=== PATIENT | female | born 1990 | race Caucasian/White ===

== ENCOUNTER 2019-10-10 02:59 | Emergency (ER) | payer OTHER, SELFPAY ==
--- NOTE | 2019-10-10 02:48 | ECG_ITS ---
Measurements Intervals [place] Rate: 59 P: 25 SC: 164 QRS: -6 QRSD: 93 T: 8 QT: 394 QTc: 393 Interpretive Statements SINUS BRADYCARDIA WITH SINUS ARRHYTHMIA DELAYED PRECORDIAL R/S TRANSITION LOW QRS VOLTAGE IN PRECORDIAL LEADS BORDERLINE T WAVE ABNORMALITY- ANTERIOR LEADS BASELINE ARTIFACT- I, II, III, AVR, AVL, AVF, V2 BORDERLINE ECG Electronically Signed On 10-10-2019 15:36:19 CDT by Oz Ray D.O.
[2019-10-10 02:58] VITALS: BP 120/70; PULSE 61; RESP 19; TEMP 36.6; O2SAT 100
--- NOTE | 2019-10-10 03:24 | ED.SYNCOPE ---
HPI - Syncope General Chief Complaint: Syncope Stated Complaint: weakness/ syncope Time Seen by Provider: 10/10/19 03:19 History of Present Illness HPI narrative: Patient had a syncopal episode tonight. She usually faints once or twice a year. No cause has been found. She had no injury. 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 She has asthma, irritable bowel syndrome, migraine headaches. She has had a surgery as a child. She does not smoke cigarette, she drinks occasional alcohol, does not use marijuana. Is not been sick recently. MD complaint: loss of consciousness, felt faint and collapsed Onset (ago): hour(s) Prodromal symptoms: lightheaded Related Data Allergies Allergy/AdvReac Type Severity Reaction Status Date / Time acetaminophen Allergy Mild Hives / Verified 07/02/16 16:46 [place] butalbital Allergy Mild Hives / Verified 07/02/16 16:46 [place] caffeine Allergy Mild Hives / Verified 07/02/16 16:46 [place] Penicillins Allergy Mild Hives / Verified 07/02/16 16:46 [place] Review of Systems Review of Systems: Narrative: CONSTITUTIONAL: Denies fever, chills, or sweats. EYES: Denies visual changes, redness, or discharge. ENT: Denies rhinorrhea, congestion, sore throat, or otalgia. CARDIOVASCULAR: Denies chest pain, palpitations, or edema. RESPIRATORY: Denies cough or dyspnea. GASTROINTESTINAL: Denies abdominal pain, nausea, vomiting, or diarrhea. GENITOURINARY: Denies dysuria or hematuria. SKIN: Denies rash or itching. MUSCULOSKELETAL: Denies back pain, joint pain, or myalgia. NEUROLOGIC: Denies headache, numbness, or weakness. PSYCHIATRIC: Denies anxiety or depression. Course Reevaluation(s) Reevaluation #1: When indicated the patient her results, and discharge her. Date: 10/10/19 Time: 04:14 Vital Signs Vital signs: Vital Signs Temperature 97.8 F 10/10/19 02:58 Pulse Rate 61 10/10/19 02:58 Respiratory Rate 19 10/10/19 02:58 Blood Pressure 120/70 10/10/19 02:58 Pulse Oximetry 100 10/10/19 02:58 Temperature 97.8 F 10/10/19 02:58 Pulse Rate 62 07/21/20 03:35 Respiratory Rate 19 10/10/19 02:58 Blood Pressure 120/70 10/10/19 02:58 Pulse Oximetry 100 10/10/19 02:58 MDM - Syncope Lab Data Result diagrams: 10/10/19 03:11 10/10/19 03:11 Labs: Lab Results 10/10/19 10/10/19 10/10/19 Range/Units 03:11 03:11 03:32 WBC 10.8 H (4.5-10.0) K/mm3 RBC 4.14 L (4.2-5.4) M/mm3 Hgb 13.4 (12.0-15.0) g/dL Hct 39.7 (37.0-47.0) % MCV 95.9 (80-100) fl MCH 32.4 (26-34) pg MCHC 33.8 (32-36) g/dl RDW 12.4 (11.5-14.5) % Plt Count 391 H (150-375) k/mm3 MPV 9.7 (7.4-10.4) fl Immature Gran % (Auto) 0.5 (0-0.5) % Neut % (Auto) 71.3 (45.5-73.1) % Lymph % (Auto) 15.8 L (18.3-44.2) % Hayes % (Auto) 9.9 H (2.6-8.5) % Eos % (Auto) 1.9 (0-4.4) % Baso % (Auto) 0.6 (0.2-1.2) % Lymph # (Auto) 1.70 (0.9-3.2) K/mm3 Hayes # (Auto) 1.1 H (0.1-0.6) K/mm3 Eos # (Auto) 0.2 (0-0.3) K/mm3 Baso # (Auto) 0.1 (0.0-0.1) K/mm3 Abs Immat Gran (auto) 0.05 H (0.00-0.031) K/mm3 Absolute Neuts (auto) 7.7 H (1.3-6.7) K/mm3 Absolute Nucleated RBC 0.0 (0.0-0.012) K/mm3 Nucleated RBC % 0.0 (0.0-0.2) % Sodium 136 L (137-145) mmol/L Potassium 4.3 (3.4-5.0) mmol/L Chloride 102 (98-107) mmol/L Carbon Dioxide 27 (22-30) mmol/L BUN 18 H (7-17) mg/dL Creatinine 1.00 (0.7-1.0) mg/dL Estim Creat Clear Calc Not Reportable Estimated GFR > 60 (59 - ) Glucose 120 H (65-105) mg/dL Calcium 9.1 (8.4-10.2) mg/dL Total Bilirubin 0.1 L (0.2-1.3) mg/dL AST 24 (14-36) U/L ALT 25 (4-35) U/L Alkaline Phosphatase 69 (38-126) U/L Total Protein 7.0 (6.3-8.2) g/dL Albumin 4.3 (3.5-5.1) g/dL Urine Color Straw (Yellow) Urine Appearance Clear (Cl
[2019-10-10 03:30] LABS: Basophils Absolute Auto 0.1 K/mm3 (0.0-0.1); Basophils Percent Auto 0.6 % (0.2-1.2); Eosinophils Absolute Auto 0.2 K/mm3 (0-0.3); Eosinophils Percent Auto 1.9 % (0-4.4); Hematocrit 39.7 % (37.0-47.0); Hemoglobin 13.4 g/dL (12.0-15.0); Immature Granulocyte Absolute 0.05 K/mm3 (0.00-0.031); Immature Granulocyte Percent A 0.5 % (0-0.5); Lymphocytes Percent Auto 15.8 % (18.3-44.2); Mean Corpuscular HGB Conc 33.8 g/dl (32-36); Mean Corpuscular Hemoglobin 32.4 pg (26-34); Mean Corpuscular Volume 95.9 fl (80-100); Mean Platelet Volume 9.7 fl (7.4-10.4); Monocytes Absolute Auto 1.1 K/mm3 (0.1-0.6); Monocytes Percent Auto 9.9 % (2.6-8.5); Neutrophils Absolute Auto 7.7 K/mm3 (1.3-6.7); Neutrophils Percent Auto 71.3 % (45.5-73.1); Platelet Count Result 391 k/mm3 (150-375); Red Blood Count 4.14 M/mm3 (4.2-5.4); Red Cell Distribution Width 12.4 % (11.5-14.5); White Blood Count 10.8 K/mm3 (4.5-10.0)
--- NOTE | 2019-10-10 03:30 | PC.NURSE ---
pt ambulatory to restroom at this time without difficulty, denies dizziness. ambulatory with steady gait.
[2019-10-10 03:35] VITALS: PULSE 62
[2019-10-10 03:36] LABS: Alanine Aminotransferase 25 U/L (4-35); Albumin Level 4.3 g/dL (3.5-5.1); Alkaline Phosphatase 69 U/L (38-126); Aspartate Amino Transferase 24 U/L (14-36); Bilirubin,Total 0.1 mg/dL (0.2-1.3); Blood Urea Nitrogen 18 mg/dL (7-17); Calcium 9.1 mg/dL (8.4-10.2); Carbon Dioxide 27 mmol/L (22-30); Chloride 102 mmol/L (98-107); Estimated Glomerular Filt Rate > 60; Glucose 120 mg/dL (65-105); Potassium 4.3 mmol/L (3.4-5.0); Sodium 136 mmol/L (137-145)
[2019-10-10 03:49] LABS: Add Urine Microscopic? NO; Appearance Urine Clear (Clear); Bilirubin Urine Negative (Negative); Blood Urine Negative (Negative); Color Urine Straw (Yellow); Glucose Urine UA Negative (Negative); Ketones Urine Negative (Negative); Leukocyte Esterase Ur Negative LEU/UL (Negative); Nitrate Urine Negative (Negative); Protein Urine Negative (Negative); Specific Grav Ur 1.009 (1.001-1.035); Urobilinogen Urine Negative mg/dL (<2.0)
[2019-10-10 04:14] VITALS: BP 116/78; PULSE 66; RESP 18; TEMP 36.7; O2SAT 100
== END 2019-10-10 04:15 | disposition home or self-care (01) ==
PROVIDERS: Emergency Provider Emergency Medicine; PCP Family Medicine
DX: R55 Syncope and collapse (principal)
CPT/HCPCS: 36415; 80053; 81003; 81025; 85025; 93005; 99283

== ENCOUNTER 2021-07-11 12:41 | Emergency (ER) | payer OTHER, SELFPAY ==
--- NOTE | 2021-07-11 12:52 | ED.DIZZY ---
HPI - Dizziness General Chief Complaint: Dizziness Stated Complaint: Dizzy Time Seen by Provider: 07/11/21 12:52 Source: patient Mode of arrival: ambulatory Limitations: no limitations History of Present Illness HPI Narrative: 31-year-old female presents with complaint of intermittent dizziness for 2 to 3 days. Reports that she gets episodes of dizziness when she is standing up or when ambulatory. Feels dizzy first and then becomes diaphoretic and nauseous. Has not vomited. States that dizziness lasts anywhere from 5 to 30 minutes and then resolves. Denies chest pain and shortness of breath. Denies URI symptoms. No vision changes. Patient is ambulatory with steady gait. Currently not experiencing any dizziness. [place] dizzy this morning and had to call into work. All systems reviewed and negative except as noted above. Related Data Home Medications Medication Instructions Recorded Confirmed aripiprazole mg 07/11/21 fexofenadine mg 07/11/21 folic acid 07/11/21 montelukast mg 07/11/21 propranolol PO 07/11/21 sertraline mg 07/11/21 sumatriptan succinate mg PO 07/11/21 Allergies Allergy/AdvReac Type Severity Reaction Status Date / Time acetaminophen Allergy Mild Hives / Verified 07/02/16 16:46 [place] butalbital Allergy Mild Hives / Verified 07/02/16 16:46 [place] caffeine Allergy Mild Hives / Verified 07/02/16 16:46 [place] Penicillins Allergy Mild Hives / Verified 07/02/16 16:46 [place] Review of Systems Review of Systems: CONSTITUTIONAL: Denies fever, chills, or sweats. EYES: Denies visual changes, redness, or discharge. ENT: Denies rhinorrhea, congestion, sore throat, or otalgia. CARDIOVASCULAR: Denies chest pain, palpitations, or edema. RESPIRATORY: Denies cough or dyspnea. GASTROINTESTINAL: Denies abdominal pain, vomiting, or diarrhea. Reports nausea. GENITOURINARY: Denies dysuria or hematuria. SKIN: Denies rash or itching. MUSCULOSKELETAL: Denies back pain, joint pain, or myalgia. NEUROLOGIC: Denies headache, numbness, or weakness. Reports dizziness PSYCHIATRIC: Denies anxiety or depression. All other systems reviewed are negative, except as documented in HPI. [facility] Comments At time of signature, agree with nursing past medical, surgical, social and family history. There is no relevant family history pertinent to the presenting complaint. Exam Narrative: GENERAL: This is a well-nourished, well-developed patient, in no apparent distress. HEAD: normocephalic, atraumatic. EYES: PERRL. Sclera clear/white. Vision is grossly intact., Normal light reflex. EARS: External ears normal, auditory canals clear and without drainage, TMs without perforation. Hearing grossly intact. Fluid to bilateral TMs, opaque, dull light reflex NOSE: External nose normal with no obvious nasal discharge, nares without redness, no rhinorrhea. THROAT: Mucous membranes moist, posterior pharynx clear. NECK: Neck supple, non-tender without lymphadenopathy, masses or thyromegaly. CARDIOVASCULAR: Regular rate and rhythm without murmurs, gallops, or rubs. RESPIRATORY: Clear to auscultation. Breath sounds equal bilaterally. No wheezes, rales, or rhonchi. SKIN: warm, Dry, intact with no suspicious lesions or rash, good texture and turgor. NEURO: awake, alert, and oriented to person, place and time. There were no obvious focal neurologic abnormalities. EXTREMITIES: No joint tenderness, effusion, or edema noted. No calf tenderness. Course Course Level of Care: Express Care Visit Vital Signs Vital signs: Vital Signs Temperature 36.7 C 07/11/21 12:53 Pulse Rate 75 07/11/21 12:53 Respiratory Rate 18 07/11/21 12:53 Blood Pressure 138/90 07/11/21 12:53 Pulse Oximetry 100 07/11/21 12:53 Temperature 36.7 C 07/11/21 12:53 Pulse Rate 75 07/11/21 12:53 Respiratory Rate 18 07/11/21 12:53 Blood Pressure 138/90 07/11/21 12:53 Pulse Oximetry 100 07/11/21 12:53 Reviewed Arsenio
[2021-07-11 12:53] VITALS: BP 138/90; PULSE 75; RESP 18; TEMP 36.7; O2SAT 100
== END 2021-07-11 13:16 | disposition home or self-care (01) ==
PROVIDERS: Emergency Provider Nurse Practitioner Family
DX: R42 Dizziness and giddiness (principal); J45.909 Unspecified asthma, uncomplicated
CPT/HCPCS: 99213; G0463